=== PATIENT | female | born 1945 | race African-American/Black ===

== ENCOUNTER → 2019-07-10 | Emergency (ER) | payer MEDICARE, BC ==
[~2019-07-10] VITALS: Ht 162.6 cm; Wt 84.0 kg
[~2019-07-10] MED LIST: METO25TA6 PO
[2019-07-10 16:02] LABS: HEMATOCRIT. 36.8 % (36.0-48.0); HEMOGLOBIN. 12.7 g/dL (12.0-16.0); MEAN CORPUSCULAR HEMOGLOBIN 29.6 pg (28.0-32.0); MEAN CORPUSCULAR VOLUME 85.9 fL (81.0-99.0); MEAN PLATELET VOLUME 8.4 fl (7.4-10.4); PLATELET 253 x1000/uL (130-400); RED BLOOD CELL COUNT 4.28 mill/uL (4.2-5.4); RED CELL DISTRIBUTION WIDTH 14.3 % (11.6-14.6)
[2019-07-10 16:05] LABS: CHLORIDE 111 mEq/L (98-107)
[2019-07-10 16:22] LABS: PLATELET ESTIMATE NORMAL
[2019-07-10 17:00] VITALS: BP 116/70
== END | disposition home or self-care (01) ==
LOC: ER 12:45
DX: R42 Dizziness and giddiness (principal); I10 Essential (primary) hypertension; M19.90 Unspecified osteoarthritis, unspecified site; Z90.710 Acquired absence of both cervix and uterus
CPT/HCPCS: 36415; 80053; 83735; 84443; 84484; 85025; 93005; 99284

== ENCOUNTER 2023-08-13 06:34 | Emergency (ER) | payer MEDICARE, BC ==
[~2023-08-13] VITALS: Ht 162.6 cm; Wt 78.0 kg
[2023-08-13 07:02] VITALS: O2SAT 100
[2023-08-13] MEDS ORDERED: IBUPROFEN 400MG TABLET PO ONE (08:15)
[2023-08-13] MEDS: KETOROLAC 60MG/2ML VIAL IM ONE (09:15)
[2023-08-13] MEDS: AMOXICILLIN/POTASSIUM CLAVULANATE 875/125MG TAB PO ONE (09:15)
[2023-08-13] MEDS ORDERED: AMOX1TAB16 MT (09:23)
[2023-08-13 09:40] VITALS: BP 107/80; PULSE 104; RESP 15; TEMP 98.7
== END 2023-08-13 09:50 | disposition home or self-care (01) ==
LOC: ER 06:34
DX: K04.7 Periapical abscess without sinus (principal); Z90.710 Acquired absence of both cervix and uterus; I49.9 Cardiac arrhythmia, unspecified
CPT/HCPCS: 99291; 96372; J1885